=== PATIENT | female | born 1980 | race Caucasian/White ===

== ENCOUNTER 2018-10-03 15:10 | Emergency (ER) | payer OTHER ==
[~2018-10-03] VITALS: Ht 162.6 cm; Wt 79.3 kg
[2018-10-03 15:12] VITALS: BP 138/87
--- NOTE | 2018-10-03 15:33 | NUR ---
ERP AT NOW.
--- NOTE | 2018-10-03 16:09 | NUR ---
PT UNDERSTANDS POC, DENIES NEEDS AT THIS TIME.
[2018-10-03 16:31] LABS: % IRON SATURATION 2 % (20-55); IRON LEVEL 12 mcg/dL (50-170); TOTAL IRON BINDING CAPACITY 519 mcg/dL (250-450)
[2018-10-03 16:59] LABS: BASOPHILS # (AUTO) 0.01 x10^3/uL (0-0.1); BASOPHILS % (AUTO) 0 % (0-1); EOSINOPHILS # (AUTO) 0.18 x10^3/uL (0-0.4); EOSINOPHILS % (AUTO) 4 % (1-7); LYMPHOCYTES # (AUTO) 1.26 x10^3/uL (1-3.4); LYMPHOCYTES % (AUTO) 25 % (22-44); MD MORPH REVIEW ONLY; MEAN CORPUSCULAR HEMOGLOBIN 19.6 pg (27.0-34.8); MEAN CORPUSCULAR HGB CONC 30.2 g/dL (32.4-35.8); MEAN PLATELET VOLUME 8.4 fL (7.4-10.4); MONOCYTES # (AUTO) 0.59 x10^3/uL (0.2-0.8); MONOCYTES % (AUTO) 11 % (2-9); NEUTROPHILS # (AUTO) 3.12 x10^3/uL (1.8-6.8); NEUTROPHILS % (AUTO) 61 % (42-75); PLATELET COUNT 316 x10^3/uL (130-400); RED BLOOD COUNT 3.76 x10^6/uL (3.82-5.3); RED CELL DISTRIBUTION WIDTH 17.6 % (9.6-15.2)
[2018-10-03 17:00] LABS: <PLATELET ESTIMATE> ADEQUATE; <PLT MORPHOLOGY> NORMAL PLT MORPH; ANISOCYTOSIS 1+; MICROCYTOSIS 2+; OVALOCYTES 1+; POLYCHROMASIA 1+
--- NOTE | 2018-10-03 17:14 | NUR ---
ERP WAS IN FOR RECHECK.
--- NOTE | 2018-10-03 17:49 | NUR ---
D/C INSTRUCTIONS & F/U APPT RV'WD WITH PT BY ASSIST RN. PT AMBULATED OUT OF ED WITHOUT DIFFICULTY.
== END 2018-10-03 17:41 | disposition home or self-care (01) ==
LOC: ED 17:35
DX: D50.0 Iron deficiency anemia secondary to blood loss (chronic) (principal); N92.0 Excessive and frequent menstruation with regular cycle; N94.6 Dysmenorrhea, unspecified; N93.8 Other specified abnormal uterine and vaginal bleeding
CPT/HCPCS: 36415; 82728; 83540; 83550; 84703; 85025; 99283